=== PATIENT | female | born 1975 | race Caucasian/White ===

== ENCOUNTER 2016-07-01 09:07 | Day surgery (SDC) | payer MEDICAID ==
[2016-06-26 09:20] VITALS: BP 118/76
[~2016-07-01] VITALS: Ht 167.6 cm; Wt 97.0 kg
[~2016-07-01 09:07] MED LIST: ABX PO; ALBU1.25 NEB; ALBU18HF IH; ALBU18HF PO; ALBUTEROL INHALER INH; ALPR-475 PO; BACITRACIN 50,000 UNIT ONE; BACITRACIN OINT 500U/GM, 15 GM ONE; BUTA1CAP57 PO; CLIN-60 PO; DIPH25CA61 PO; EPINEPHRINE 1 MG/ML, 1ML ONE; FLUO40CA9 PO; FLUORESCEIN OPHTHALMIC 1 MG STRIP ONE; FLUT1AER INH; HYDROCODONE PO; IBUP800T PO; LIDOCAINE/PF 1%, 30ML ONE; LIDOCAINE/PF 1%-EPI 1:200K, 30ML ONE; MULTIVITAMIN PO; MUSCLE RELAXER PO; OMEP20TA62 PO; OXYMETAZOLINE NASAL SPRAY 0.05%, 15ML ONE; PHEN30CA2 PO; PRED20TA PO; PREDNISONE PO; SINGULAIR PO; SYMBICORT INH; TRAM-28 PO; TRAMADOL PO; [UNRECOGNIZED DRUG - REMARK] PO; [UNRECOGNIZED DRUG - REMARK] PO
[2016-07-01] MEDS ORDERED: LACTATED RINGERS 1,000 ML IV SCH (09:55)
[2016-07-01] MEDS ORDERED: LIDOCAINE 1%, 2ML SQ PRN (10:00)
[2016-07-01] MEDS ORDERED: LIDOCAINE 1%, 2ML ONE (10:03)
[2016-07-01] MEDS ORDERED: EPINEPHRINE TOPICAL SOLN 1 MG/ML, 30ML ONE (10:04)
[2016-07-01] MEDS ORDERED: OXYMETAZOLINE NASAL SPRAY 0.05%, 15ML ONE (10:04)
[2016-07-01] MEDS ORDERED: FENTANYL PF 250 MCG/5ML ONE (10:15)
[2016-07-01] MEDS ORDERED: MIDAZOLAM 1 MG/ML, 2ML ONE (10:15)
[2016-07-01] MEDS ORDERED: FAMOTIDINE 20 MG/2 ML ONE (10:16)
[2016-07-01] MEDS ORDERED: SUCCINYLCHOLINE 20 MG/ML, 10ML ONE (10:57)
[2016-07-01] MEDS ORDERED: DEXAMETHASONE 4 MG/ML, 1ML ONE (10:57)
[2016-07-01] MEDS ORDERED: ONDANSETRON 2MG/ML, 2ML ONE (10:57)
[2016-07-01] MEDS ORDERED: GLYCOPYRROLATE 0.2MG/1ML ONE (10:57)
[2016-07-01] MEDS ORDERED: ROCURONIUM 10 MG/ML ONE (10:57)
[2016-07-01] MEDS ORDERED: CEFAZOLIN 1,000 MG ONE (10:57)
[2016-07-01] MEDS ORDERED: PROPOFOL 10 MG/ML, 20ML ONE (10:57)
[2016-07-01] MEDS ORDERED: NEOSTIGMINE 1 MG/ML, 10ML ONE (10:57)
[2016-07-01] MEDS ORDERED: MEPERIDINE/PF 50 MG/ML ONE (12:47)
[2016-07-01] MEDS ORDERED: OXYcodone 5 MG/5 ML ORAL.SOL UDC ONE (12:47)
[2016-07-01] MEDS ORDERED: PROMETHAZINE 25 MG/ML, 1ML ONE (12:54)
[2016-07-01] MEDS ORDERED: FENTANYL PF 100 MCG/2ML ONE (12:54)
[2016-07-01] MEDS: PROMETHAZINE 25 MG/ML, 1ML IV PRN ×2 (12:56→13:14)
[2016-07-01] MEDS ORDERED: MEPERIDINE/PF 25MG/0.5ML IVPush PRN (13:00)
[2016-07-01] MEDS ORDERED: EPHEDRINE 50 MG/ML, 1ML IVPush PRN (13:00)
[2016-07-01] MEDS ORDERED: METOPROLOL 1 MG/ML, 5ML IV PRN (13:00)
[2016-07-01] MEDS ORDERED: MIDAZOLAM 1 MG/ML, 2ML IV PRN (13:00)
[2016-07-01] MEDS ORDERED: LABETALOL 5MG/ML, 20ML IV PRN (13:00)
[2016-07-01] MEDS ORDERED: OXYcodone 5 MG/5 ML ORAL.SOL UDC PO PRN (13:00)
[2016-07-01] MEDS ORDERED: ACETAMINOPHEN 325 MG TABLET PO PRN (13:00)
[2016-07-01] MEDS ORDERED: ONDANSETRON 2MG/ML, 2ML IVPush PRN (13:00)
[2016-07-01] MEDS ORDERED: ALBUTEROL SULFATE 2.5 MG/3 ML NPPB PRN (13:00)
[2016-07-01] MEDS ORDERED: hydrALAzine 20 MG/ML, 1ML IV PRN (13:00)
[2016-07-01] MEDS: FENTANYL PF 100 MCG/2ML IV PRN ×2 (13:01→13:08)
[2016-07-01] MEDS ORDERED: HYDROmorphone 2 MG/ML, 1ML ONE (13:28)
[2016-07-01] MEDS: HYDROmorphone 1 MG/ML, 1ML IV PRN ×3 (13:30→13:45)
[2016-07-01] MEDS ORDERED: MORPHINE SULFATE 4 MG/ML, 1ML ONE (15:27)
[2016-07-01] MEDS: MORPHINE SULFATE 4 MG/ML, 1ML IVPush PRN ×2 (15:40→16:41)
[2016-07-01] MEDS ORDERED: HYDROcodone/APAP 5/325 TABLET ONE (16:34)
[2016-07-01] MEDS ORDERED: HYDROcodone/APAP 5/325 TABLET PO PRN (17:00)
== END 2016-07-01 17:10 | disposition home or self-care (01) ==
LOC: OUT 09:07
PROVIDERS: ATTEND Otolaryngology
DX: J32.0 Chronic maxillary sinusitis (principal); J32.3 Chronic sphenoidal sinusitis; J32.2 Chronic ethmoidal sinusitis; J34.2 Deviated nasal septum; J45.909 Unspecified asthma, uncomplicated; K21.9 Gastro-esophageal reflux disease without esophagitis; Z86.711 Personal history of pulmonary embolism; Z90.710 Acquired absence of both cervix and uterus; Z87.09 Personal history of other diseases of the respiratory system; Z79.1 Long term (current) use of non-steroidal anti-inflammatories (NSAID); Z79.899 Other long term (current) drug therapy; Z82.5 Family history of asthma and other chronic lower respiratory diseases; Z72.89 Other problems related to lifestyle
CPT/HCPCS: 31255; 31256; 31287; 87070; 87075; 87205; 88304; J0171; J0330; J0690; J1100; J1170; J2175; J2250; J2405; J2550; J2704; J2710; J3010; J3490; J7120; S0028

== ENCOUNTER 2017-05-05 07:00 | Day surgery (SDC) | payer MEDICAID ==
[~2017-05-05] VITALS: Ht 167.6 cm; Wt 86.0 kg
[~2017-05-05 07:00] MED LIST changes: -BACITRACIN 50,000 UNIT ONE; -BACITRACIN OINT 500U/GM, 15 GM ONE; -CLIN-60 PO; +CLIN150C14 PO; -EPINEPHRINE 1 MG/ML, 1ML ONE; -FLUORESCEIN OPHTHALMIC 1 MG STRIP ONE; +IBUP-1223 PO; -IBUP800T PO; -LIDOCAINE/PF 1%, 30ML ONE; -LIDOCAINE/PF 1%-EPI 1:200K, 30ML ONE; -OXYMETAZOLINE NASAL SPRAY 0.05%, 15ML ONE; -PHEN30CA2 PO; +PHEN30CA3 PO; -TRAM-28 PO; +TRAM-47 PO
[2017-05-05] MEDS ORDERED: NEOSPORIN OINT, 15GM ONE (07:10)
[2017-05-05] MEDS ORDERED: LIDOCAINE 1%, 50ML ONE (07:10)
[2017-05-05] MEDS ORDERED: THROMBIN 5,000 UNIT VIAL TP ONE (07:10)
[2017-05-05] MEDS ORDERED: OXYMETAZOLINE NASAL SPRAY 0.05%, 15ML ONE (07:11)
[2017-05-05] MEDS ORDERED: EPINEPHRINE 1 MG/ML, 1ML ONE (07:11)
[2017-05-05] MEDS ORDERED: COCAINE TOPICAL SOLN 4%, 4ML ONE (07:11)
[2017-05-05] MEDS ORDERED: LACTATED RINGERS 1,000 ML IV SCH (07:14)
[2017-05-05 07:15] VITALS: BP 122/87
[2017-05-05] MEDS ORDERED: NORT50CA PO (07:36)
[2017-05-05] MEDS ORDERED: ZONI100C2 PO (07:36)
[2017-05-05] MEDS ORDERED: RANI150C PO (07:36)
[2017-05-05] MEDS ORDERED: FOLI-17 PO (07:36)
[2017-05-05] MEDS ORDERED: PANT40TA5 PO (07:36)
[2017-05-05] MEDS ORDERED: FENTANYL PF 250 MCG/5ML ONE (08:22)
[2017-05-05] MEDS ORDERED: MIDAZOLAM 1 MG/ML, 2ML ONE (08:22)
[2017-05-05] MEDS ORDERED: PROPOFOL 10 MG/ML, 20ML ONE (08:31)
[2017-05-05] MEDS ORDERED: NEOSTIGMINE 1 MG/ML, 10ML ONE (08:32)
[2017-05-05] MEDS ORDERED: ROCURONIUM 10MG/ML,5ML ONE (08:32)
[2017-05-05] MEDS ORDERED: DEXAMETHASONE 4 MG/ML, 1ML ONE ×3 (08:33→09:10)
[2017-05-05] MEDS ORDERED: ONDANSETRON 2MG/ML, 2ML ONE ×3 (08:33→11:56)
[2017-05-05] MEDS ORDERED: CEFAZOLIN 1,000 MG ONE ×2 (08:34)
[2017-05-05] MEDS ORDERED: SODIUM CHLORIDE 0.9% PF 10ML ONE (08:34)
[2017-05-05] MEDS ORDERED: SCOPOLAMINE PATCH, 1.5MG PATCH.TD72 TD ONE (08:39)
[2017-05-05] MEDS ORDERED: hydrALAzine 20 MG/ML, 1ML IV PRN (09:00)
[2017-05-05] MEDS ORDERED: PROMETHAZINE 12.5 MG SUPP PR PRN (09:00)
[2017-05-05] MEDS ORDERED: MEPERIDINE/PF 25MG/0.5ML IVPush PRN (09:00)
[2017-05-05] MEDS ORDERED: PROMETHAZINE 25 MG/ML, 1ML IV PRN (09:00)
[2017-05-05] MEDS ORDERED: OXYcodone 5 MG/5 ML ORAL.SOL UDC PO PRN (09:00)
[2017-05-05] MEDS ORDERED: ONDANSETRON 2MG/ML, 2ML IVPush PRN (09:00)
[2017-05-05] MEDS ORDERED: LABETALOL 5MG/ML, 20ML IV PRN (09:00)
[2017-05-05] MEDS ORDERED: HYDROmorphone 1 MG/ML, 1ML IV PRN (09:00)
[2017-05-05] MEDS ORDERED: OXYcodone 5 MG/5 ML ORAL.SOL UDC ONE (11:33)
[2017-05-05] MEDS ORDERED: ACETAMINOPHEN 650 MG/20.3 ML UDC ONE (11:33)
[2017-05-05] MEDS ORDERED: FENTANYL PF 100 MCG/2ML ONE (11:33)
[2017-05-05] MEDS: FENTANYL PF 100 MCG/2ML IV PRN ×3 (11:35→11:45)
[2017-05-05] MEDS ORDERED: ACETAMINOPHEN 325 MG TABLET PO PRN (12:00)
[2017-05-05] MEDS ORDERED: morphine SULFATE 10 MG/ML, 1ML ONE (12:42)
[2017-05-05] MEDS: morphine SULFATE 10 MG/ML, 1ML IV PRN ×2 (12:43→12:50)
== END 2017-05-05 15:10 ==
LOC: OUT 07:00
PROVIDERS: ATTEND Specialist
DX: J34.89 Other specified disorders of nose and nasal sinuses (principal); J34.2 Deviated nasal septum; M95.0 Acquired deformity of nose; J45.909 Unspecified asthma, uncomplicated; K21.9 Gastro-esophageal reflux disease without esophagitis; M10.9 Gout, unspecified; Z85.118 Personal history of other malignant neoplasm of bronchus and lung; Z85.850 Personal history of malignant neoplasm of thyroid
CPT/HCPCS: 30465; 30520; C1776; J0171; J0690; J1100; J2250; J2270; J2405; J2704; J2710; J3010; J3490; J7120

== ENCOUNTER → 2020-01-16 | Outpatient (CLI) | payer MEDICAID ==
[~2020-01-16] MED LIST changes: -ALPR-475 PO; +ALPR0.5T7 PO; +FOLI-17 PO; +NORT50CA52 PO; +PANT40TA6 PO; +RANI150C PO; +ZONI100C29 PO
== END | disposition home or self-care (01) ==
LOC: CVU 07:48
PROVIDERS: ATTEND Internal Medicine Cardiovascular Disease
DX: R00.2 Palpitations (principal); R00.0 Tachycardia, unspecified
CPT/HCPCS: 93306

== ENCOUNTER → 2020-08-15 | Outpatient (CLI) | payer MEDICAID ==
[~2020-08-15] MED LIST changes: -CLIN150C14 PO; +CLIN150C15 PO; -FOLI-17 PO; +FOLI1TAB32 PO
== END | disposition home or self-care (01) ==
LOC: CVU 07:16
PROVIDERS: ATTEND Nurse Practitioner
DX: I86.8 Varicose veins of other specified sites (principal); G25.81 Restless legs syndrome
CPT/HCPCS: 93970

== ENCOUNTER 2020-11-12 08:34 | Outpatient (CLI) | payer MEDICAID ==
[~2020-11-12 08:34] MED LIST changes: -CLIN150C15 PO; +CLIN150C17 PO
== END 2020-11-12 23:59 | disposition home or self-care (01) ==
LOC: CARD 08:34
PROVIDERS: ATTEND Nurse Practitioner
DX: R20.0 Anesthesia of skin (principal)
CPT/HCPCS: 95886; 95913